=== PATIENT | male | born 1985 | race Caucasian/White ===

== ENCOUNTER 2022-03-11 15:33 | Outpatient (CLI) | payer OTHER, SELFPAY ==
[2022-03-11 15:02] LABS: Cholesterol* 162 mg/dL (90-199); Glucose* 98 mg/dL (60-115); HDL Cholesterol* 55 mg/dL (>=40); LDL Cholesterol Calculated 79 mg/dL (<100); Triglycerides* 142 mg/dL (40-149)
== END 2022-03-11 15:34 | disposition home or self-care (01) ==
PROVIDERS: Visit Provider Emergency Medicine
DX: Z13.1 Encounter for screening for diabetes mellitus (principal); Z13.6 Encounter for screening for cardiovascular disorders
CPT/HCPCS: 80061; 82947